=== PATIENT | female | born 1955 | race African-American/Black ===

== ENCOUNTER 2016-10-25 18:24 | Emergency (ER) | payer OTHER ==
[~2016-10-25] VITALS: Ht 160 cm; Wt 93.8 kg
[~2016-10-25 18:24] MED LIST: ACETAMINOPHEN650 M7 PO; ACID CONTROL150 MG PO; AMMONIUM LACTA140 GM TP; ASPIR-TRIN325 M1 PO; BESIVANCE5 ML RIGHT EYE; CALCIUM 500 +1 EAC1 PO; CALCIUM 600 +1 EAC1; CALCIUM 600 +1 EAC1 PO; CALCIUM 600 +1 EACH PO; CALTRATE 6001 TABLE1 PO; Cipro PO; DEPAKOTE250 MG PO; DEPAKOTE500 MG PO; DITROPAN5 MG PO; DIVALPROEX SOD500 MG PO; Ecotrin PO; FOSAMAX5 MG PO; KEFLEX500 MG PO; LAC-HYDRIN 12%140 GM TP; LEVAQUIN500 MG PO; LEVAQUIN750 MG PO; LITE COAT ASPI325 M1 PO; Levaquin PO; MELATONIN3 MG PO; MILK OF MAGNESI10 ML PO; MIRALAX17 GM PO; MIRALAX255 GM PO; OXYBUTYNIN CHLOR5 MG PO; PHILLIPS'400 MG/5 M PO; PRAVACHOL10 MG PO; PRED FORTE100 DROP/5 RIGHT EYE; PRILOSEC40 MG PO; PROLENSA1.6 ML RIGHT EYE; RANITIDINE HCL150 MG PO; RISPERDAL0.5 MG PO; RISPERIDONE0.5 MG PO; TUSSIN COUGH &118 M1 PO; TUSSIN15 MG/5 M1 PO; TYLENOL REGULA325 MG PO; VIMPAT50 MG PO; VITAMIN D1000 INTUN PO; ZANTAC150 MG PO; [UNRECOGNIZED DRUG - OTHER]
[2016-10-25 20:34] LABS: HEMATOCRIT 42.3 % (36.0-46.0); MCH 30.8 PG (29.0-34.0); MCHC 33.1 G/DL (30.0-36.0); RBC DIS.WIDTH-CV 12.6 % (11.8-14.6); RBC DIS.WIDTH-SD 43.1 % (39-53); RED BLOOD COUNT 4.55 M/uL (3.80-5.20); WHITE BLOOD COUNT 7.4 K/uL (4.1-10.2)
[2016-10-25 21:03] LABS: CHLORIDE 103 mEq/L (99-109); POTASSIUM 4.5 mEq/L (3.7-5.4); SODIUM 140 mEq/L (136-147)
[2016-10-25 21:05] LABS: GLUCOSE 109 mg/dL (70-99)
[2016-10-25 21:07] LABS: ANION GAP 9 MEQ/L (2-14); TOTAL BILIRUBIN 0.2 mg/dL (0.0-1.0)
[2016-10-25 21:09] LABS: ALKALINE PHOSPHATASE 50 IU/L (3-129); GFR ESTIMATE (CALCULATED) > 59 mL/min/
[2016-10-25 21:10] LABS: TROP-I INTERPRETATION NEGATIVE; TROPONIN-I < 0.01 ng/mL (0.0-0.30); UREA NITROGEN (BUN) 9 mg/dL (9-23)
[2016-10-25 21:13] LABS: HEMATOLOGY COMMENT 1 SN; MEAN PLAT.VOLUME 12.4 uM^3 (9.5-12.4); PLAT.SUFFICIENCY ADEQUATE; PLATELET COUNT 211 K/uL (156-360)
[2016-10-25 22:36] VITALS: BP 186/99
== END 2016-10-25 22:38 | disposition home or self-care (01) ==
LOC: EME 18:24
PROVIDERS: Physician Assistant
DX: R03.0 Elevated blood-pressure reading, without diagnosis of hypertension (principal); R51 Headache; R25.8 Other abnormal involuntary movements; E78.5 Hyperlipidemia, unspecified
CPT/HCPCS: 70450; 80053; 84484; 85027; 93005; 99281; 99284

== ENCOUNTER 2017-10-09 14:08 | Emergency (ER) | payer OTHER ==
[~2017-10-09] VITALS: Ht 160 cm; Wt 93.0 kg
[2017-10-09] MEDS ORDERED: ADULT SUPPOSIT1 EACH PR (23:15)
[2017-10-09] MEDS ORDERED: COLACE100 MG PO (23:16)
[2017-10-09 23:47] VITALS: BP 134/87
== END 2017-10-10 00:58 | disposition home or self-care (01) ==
LOC: EME 14:08
DX: K59.00 Constipation, unspecified (principal); I10 Essential (primary) hypertension; E78.5 Hyperlipidemia, unspecified
CPT/HCPCS: 74018; 99281; 99284